=== PATIENT | female | born 1940 | race Caucasian/White ===

== ENCOUNTER 2018-08-16 20:50 | Inpatient (IN) | payer MEDICARE ==
[~2018-08-16] VITALS: Ht 147.3 cm; Wt 58.7 kg
[2018-08-16 21:45] LABS: BASOPHILS % (AUTO) 0.9 % (0.0-5.0); EOSINOPHILS % (AUTO) 0.8 % (0.0-8.0); HEMATOCRIT 25.8 % (36-48); LYMPHOCYTES % (AUTO) 28.3 % (21.0-51.0); MEAN CORPUSCULAR HEMOGLOBIN 29.3 pg (27.0-33.0); MEAN CORPUSCULAR HGB CONC 33.4 g/dL (32.0-36.0); MEAN CORPUSCULAR VOLUME 87.6 fL (79-99); MONOCYTES % (AUTO) 6.8 % (3.0-13.0); NEUTROPHILS % (AUTO) 63.2 % (40.0-77.0); PLATELET COUNT (AUTO) 225 K/uL (130-400); RED BLOOD CELL COUNT(AUTO) 2.94 MIL/uL (4.00-5.50); RED CELL DISTRIBUTION WIDTH 16.9 % (11.0-15.5); WHITE BLOOD COUNT (AUTO) 9.2 K/uL (4.8-10.8)
[2018-08-16 21:56] LABS: CREATININE 1.7 mg/dL (0.5-1.5); POTASSIUM 4.4 mmol/L (3.5-5.1)
[2018-08-16 22:01] LABS: ALBUMIN 2.5 g/dL (3.5-5.0); BILIRUBIN,TOTAL 0.4 mg/dL (0.2-1.0); TOTAL PROTEIN, SERUM 5.5 g/dL (6.0-8.3)
[2018-08-16] MEDS ORDERED: SODIUM CHLORIDE 0.9% 100 ML IV ONE (23:44)
[2018-08-17] VITALS (23 sets, daily range): BP systolic 79–129; BP diastolic 36–76
[2018-08-17] MEDS ORDERED: AMLO10TA6 PO (03:32)
[2018-08-17] MEDS ORDERED: [UNRECOGNIZED DRUG - REMARK] (03:32)
[2018-08-17] MEDS ORDERED: TIZA2TAB4 PO (03:32)
[2018-08-17] MEDS ORDERED: ATEN25TA PO (03:32)
[2018-08-17] MEDS ORDERED: CALC-1009 PO (03:32)
[2018-08-17] MEDS ORDERED: HYDR25TA PO (03:32)
[2018-08-17] MEDS ORDERED: TAVIST (03:32)
[2018-08-17] MEDS ORDERED: OMEP20CA10 PO (03:32)
[2018-08-17] MEDS ORDERED: viteyes (03:32)
[2018-08-17] MEDS ORDERED: [UNRECOGNIZED DRUG - OTHER] (03:32)
[2018-08-17] MEDS ORDERED: POTASSIUM CHLORIDE 10% ELIXIR 20 MEQ/15 ML UDCUP PO PRN (05:00)
[2018-08-17] MEDS ORDERED: POTASSIUM CHLORIDE 20 MEQ ERTAB PO PRN (05:00)
[2018-08-17] MEDS ORDERED: POTASSIUM CHLORIDE 20MEQ/100ML 100 ML IV PRN (05:00)
[2018-08-17] MEDS ORDERED: PANTOPRAZOLE 40 MG/VIAL IVP SCH (05:00)
[2018-08-17] MEDS ORDERED: ONDANSETRON HCL 4 MG/2 ML VIAL IVP PRN (05:00)
[2018-08-17] MEDS: SODIUM CHLORIDE 0.9% 1000ML 1,000 ML IV SCH ×2 (05:00→17:26)
[2018-08-17] MEDS ORDERED: LIDOCAINE HCL-MPF 1% 2ML VIAL IJ PRN (05:00)
[2018-08-17] MEDS: PANTOPRAZOLE SODIUM 80 MG in NS 100ML IVP SCH ×2 (06:00→20:30)
[2018-08-17 06:07] LABS: BASOPHILS % (AUTO) 0.6 % (0.0-5.0); EOSINOPHILS % (AUTO) 1.2 % (0.0-8.0); HEMATOCRIT 22.9 % (36-48); LYMPHOCYTES % (AUTO) 18.1 % (21.0-51.0); MEAN CORPUSCULAR HGB CONC 34.5 g/dL (32.0-36.0); MEAN CORPUSCULAR VOLUME 87.1 fL (79-99); MONOCYTES % (AUTO) 4.9 % (3.0-13.0); NEUTROPHILS % (AUTO) 75.2 % (40.0-77.0); PLATELET COUNT (AUTO) 239 K/uL (130-400); RED BLOOD CELL COUNT(AUTO) 2.63 MIL/uL (4.00-5.50); RED CELL DISTRIBUTION WIDTH 17.4 % (11.0-15.5); WHITE BLOOD COUNT (AUTO) 10.2 K/uL (4.8-10.8)
[2018-08-17] MEDS ORDERED: GLUCAGON 1MG KIT 1 MG ML IM PRN (06:15)
[2018-08-17] MEDS ORDERED: DEXTROSE 50%-WATER 50 ML DISP.SYRIN IV PRN (06:15)
[2018-08-17 06:23] LABS: ALBUMIN 2.2 g/dL (3.5-5.0); BILIRUBIN,TOTAL 0.3 mg/dL (0.2-1.0); CREATININE 1.5 mg/dL (0.5-1.5); TOTAL PROTEIN, SERUM 4.8 g/dL (6.0-8.3)
[2018-08-17] MEDS ORDERED: PROPOFOL 10 MG/ML 20ML VIAL IV ONE (07:33)
[2018-08-17] MEDS ORDERED: LIDOCAINE HCL-MPF 2% 5ML VIAL ONE (07:33)
[2018-08-17] MEDS ORDERED: PHENYLEPHRINE HCL 10 MG/ML 1ML VIAL IV ONE (07:55)
[2018-08-17] MEDS ORDERED: TIZANIDINE HCL 2 MG TABLET PO PRN (09:45)
[2018-08-17] MEDS: INSULIN HUMULIN R 100 UNIT/ML 3ML SQ SCH ×3 (12:00→21:00)
[2018-08-17] MEDS: CALCIUM 600 + VITAMIN D 400 TABLET PO SCH (16:16)
[2018-08-17] MEDS ORDERED: DIPHENHYDRAMINE HCL 25 MG CAPSULE ONE (22:43)
[2018-08-17] MEDS ORDERED: DIPHENHYDRAMINE HCL 25 MG CAPSULE PO PRN (22:45)
[2018-08-18] VITALS (19 sets, daily range): BP systolic 110–136; BP diastolic 51–75
[2018-08-18 05:45] LABS: BASOPHILS % (AUTO) 0.5 % (0.0-5.0); EOSINOPHILS % (AUTO) 2.8 % (0.0-8.0); LYMPHOCYTES % (AUTO) 34.9 % (21.0-51.0); MEAN CORPUSCULAR HEMOGLOBIN 29.2 pg (27.0-33.0); MEAN CORPUSCULAR HGB CONC 33.3 g/dL (32.0-36.0); MEAN CORPUSCULAR VOLUME 87.8 fL (79-99); MONOCYTES % (AUTO) 6.8 % (3.0-13.0); PLATELET COUNT (AUTO) 201 K/uL (130-400); RED BLOOD CELL COUNT(AUTO) 2.39 MIL/uL (4.00-5.50); RED CELL DISTRIBUTION WIDTH 17.5 % (11.0-15.5); WHITE BLOOD COUNT (AUTO) 6.8 K/uL (4.8-10.8)
[2018-08-18 05:48] LABS: CREATININE 1.3 mg/dL (0.5-1.5); POTASSIUM 3.4 mmol/L (3.5-5.1)
[2018-08-18] MEDS: SODIUM CHLORIDE 0.9% 1000ML 1,000 ML IV SCH ×2 (07:05→21:00)
[2018-08-18] MEDS: PANTOPRAZOLE SODIUM 40 MG TABLET.DR PO SCH (07:30)
[2018-08-18] MEDS: INSULIN HUMULIN R 100 UNIT/ML 3ML SQ SCH ×4 (07:30→21:00)
[2018-08-18] MEDS: AMLODIPINE BESYLATE 5 MG TAB PO SCH (07:54)
[2018-08-18] MEDS: ATENOLOL 25 MG TABLET PO SCH (07:54)
[2018-08-18] MEDS: CALCIUM 600 + VITAMIN D 400 TABLET PO SCH ×2 (07:54→17:00)
[2018-08-18] MEDS: HYDROCHLOROTHIAZIDE 25 MG TABLET PO SCH (07:54)
[2018-08-18] MEDS: PANTOPRAZOLE SODIUM 80 MG in NS 100ML IVP SCH (08:24)
[2018-08-18] MEDS ORDERED: SODIUM CHLORIDE 0.9% 500ML 500 ML IV ONE (10:23)
[2018-08-18] MEDS ORDERED: PROPOFOL 10 MG/ML 20ML VIAL IV ONE (14:30)
[2018-08-18] MEDS: LACTULOSE 20 GM/30 ML UDCUP PO SCH (17:55)
[2018-08-18] MEDS: MAGNESIUM CITRATE 296 ML SOLUTION PO SCH (17:55)
[2018-08-18] MEDS ORDERED: PEG 3350/NA SULF,BICARB,CL/KCL 4000 ML SOLN PO SCH (18:00)
[2018-08-19] VITALS (21 sets, daily range): BP systolic 105–153; BP diastolic 35–78
[2018-08-19 06:22] LABS: BASOPHILS % (AUTO) 0.5 % (0.0-5.0); EOSINOPHILS % (AUTO) 1.2 % (0.0-8.0); HEMATOCRIT 32.4 % (36-48); LYMPHOCYTES % (AUTO) 25.5 % (21.0-51.0); MEAN CORPUSCULAR HEMOGLOBIN 30.6 pg (27.0-33.0); MEAN CORPUSCULAR HGB CONC 34.6 g/dL (32.0-36.0); MEAN CORPUSCULAR VOLUME 88.4 fL (79-99); MONOCYTES % (AUTO) 6.3 % (3.0-13.0); NEUTROPHILS % (AUTO) 66.5 % (40.0-77.0); PLATELET COUNT (AUTO) 267 K/uL (130-400); RED BLOOD CELL COUNT(AUTO) 3.67 MIL/uL (4.00-5.50); RED CELL DISTRIBUTION WIDTH 15.4 % (11.0-15.5); WHITE BLOOD COUNT (AUTO) 9.2 K/uL (4.8-10.8)
[2018-08-19] MEDS: INSULIN HUMULIN R 100 UNIT/ML 3ML SQ SCH ×3 (06:29→21:00)
[2018-08-19 06:33] LABS: CREATININE 1.2 mg/dL (0.5-1.5)
[2018-08-19] MEDS: PANTOPRAZOLE SODIUM 40 MG TABLET.DR PO SCH (07:30)
[2018-08-19] MEDS: CALCIUM 600 + VITAMIN D 400 TABLET PO SCH ×2 (08:00→17:00)
[2018-08-19] MEDS: HYDROCHLOROTHIAZIDE 25 MG TABLET PO SCH (09:00)
[2018-08-19] MEDS: AMLODIPINE BESYLATE 5 MG TAB PO SCH (09:00)
[2018-08-19] MEDS: ATENOLOL 25 MG TABLET PO SCH (09:00)
[2018-08-19] MEDS: SODIUM CHLORIDE 0.9% 1000ML 1,000 ML IV SCH ×2 (10:20→23:40)
[2018-08-19] MEDS: LACTULOSE 20 GM/30 ML UDCUP PO SCH ×2 (16:30→17:30)
[2018-08-19] MEDS: MAGNESIUM CITRATE 296 ML SOLUTION PO SCH (17:30)
[2018-08-19] MEDS ORDERED: FENTANYL CITRATE PF 50 MCG/1 ML 2ML VIAL ONE ×2 (18:06→18:24)
[2018-08-19] MEDS ORDERED: MIDAZOLAM HCL 1 MG/ML 2ML VIAL ONE ×2 (18:07→18:24)
[2018-08-20] VITALS: BP 138/61
[2018-08-20 00:15] VITALS: BP 135/65
[2018-08-20 01:15] VITALS: BP 125/65
[2018-08-20 04:00] VITALS: BP 120/57
[2018-08-20 05:26] LABS: BASOPHILS % (AUTO) 0.8 % (0.0-5.0); EOSINOPHILS % (AUTO) 3.9 % (0.0-8.0); HEMATOCRIT 29.5 % (36-48); LYMPHOCYTES % (AUTO) 27.5 % (21.0-51.0); MEAN CORPUSCULAR HEMOGLOBIN 30.2 pg (27.0-33.0); MEAN CORPUSCULAR HGB CONC 33.7 g/dL (32.0-36.0); MEAN CORPUSCULAR VOLUME 89.6 fL (79-99); MONOCYTES % (AUTO) 7.3 % (3.0-13.0); NEUTROPHILS % (AUTO) 60.5 % (40.0-77.0); PLATELET COUNT (AUTO) 187 K/uL (130-400); RED BLOOD CELL COUNT(AUTO) 3.29 MIL/uL (4.00-5.50); RED CELL DISTRIBUTION WIDTH 15.7 % (11.0-15.5); WHITE BLOOD COUNT (AUTO) 5.9 K/uL (4.8-10.8)
[2018-08-20 05:31] LABS: POTASSIUM 3.4 mmol/L (3.5-5.1)
[2018-08-20] MEDS ORDERED: POTASSIUM CHLORIDE 10 MEQ/TAB.SA PO ONE ×2 (05:48)
[2018-08-20] MEDS: INSULIN HUMULIN R 100 UNIT/ML 3ML SQ SCH ×2 (06:50→11:30)
[2018-08-20] MEDS: PANTOPRAZOLE SODIUM 40 MG TABLET.DR PO SCH (06:52)
[2018-08-20 08:00] VITALS: BP 135/59
[2018-08-20] MEDS: HYDROCHLOROTHIAZIDE 25 MG TABLET PO SCH (09:38)
[2018-08-20] MEDS: AMLODIPINE BESYLATE 5 MG TAB PO SCH (09:40)
[2018-08-20] MEDS: ATENOLOL 25 MG TABLET PO SCH (09:40)
[2018-08-20] MEDS: CALCIUM 600 + VITAMIN D 400 TABLET PO SCH (09:44)
[2018-08-20 11:42] VITALS: BP 122/62
[2018-08-20 12:10] LABS: POTASSIUM 3.9 mmol/L (3.5-5.1)
== END 2018-08-20 15:30 | disposition home or self-care (01) | DRG 378 ==
LOC: EDH 20:50 → EDHIP 23:00 → 3BH 08-17 02:13
PROVIDERS: ADMIT Hospitalist; ATTEND Hospitalist
PROC: 0DJ08ZZ Inspection of Upper Intestinal Tract, Via Natural or Artificial Opening Endoscopic (ICD-10-PCS; 2018-08-17)
PROC: 0DJ08ZZ Inspection of Upper Intestinal Tract, Via Natural or Artificial Opening Endoscopic (ICD-10-PCS; 2018-08-18)
PROC: 0DJD8ZZ Inspection of Lower Intestinal Tract, Via Natural or Artificial Opening Endoscopic (ICD-10-PCS; principal; 2018-08-19)
PROC: 30233N1 Transfusion of Nonautologous Red Blood Cells into Peripheral Vein, Percutaneous Approach (ICD-10-PCS; 2018-08-19)
DX: K29.01 Acute gastritis with bleeding (principal); D62 Acute posthemorrhagic anemia; K63.3 Ulcer of intestine; I10 Essential (primary) hypertension; B96.20 Unspecified Escherichia coli [E. coli] as the cause of diseases classified elsewhere; K64.1 Second degree hemorrhoids; H35.30 Unspecified macular degeneration; E87.6 Hypokalemia; Z90.710 Acquired absence of both cervix and uterus; Z85.828 Personal history of other malignant neoplasm of skin; Z82.49 Family history of ischemic heart disease and other diseases of the circulatory system
CPT/HCPCS: 36415; 36430; 43235; 45382; 74018; 80048; 80053; 82948; 85025; 86677; 86850; 86900; 86901; 86922; C9113; J2250; J2370; J2405; J2704; J3010; J3480; J3490; J7030; J7040; P9016; Q0163

== ENCOUNTER → 2022-01-16 | Outpatient (CLI) | payer MEDICARE ==
[~2022-01-16] MED LIST: AMLO-258 PO; ATEN25TA PO; CALC-1009 PO; HYDR25TA PO; OMEP20CA12 PO; TAVIST; TIZA-194 PO; [UNRECOGNIZED DRUG - OTHER]; [UNRECOGNIZED DRUG - REMARK]; viteyes
== END | disposition home or self-care (01) ==
LOC: SHCH 08:58
PROVIDERS: ATTEND Internal Medicine Cardiovascular Disease
DX: I87.2 Venous insufficiency (chronic) (peripheral) (principal); Z98.890 Other specified postprocedural states
CPT/HCPCS: 93971